=== PATIENT | female | born 1950 | race Caucasian/White ===

== ENCOUNTER 2018-10-30 08:14 | Outpatient (CLI) ==
--- NOTE | 2018-10-30 08:58 | US ---
EXAM: RENAL ULTRASOUND, BILATERAL HISTORY: Decreased renal function FINDINGS: Ultrasound renal, bilateral. Rodriguez-scale ultrasound and color Doppler imaging was performe d. The right kidney measures 10.3 x 4.1 x 4.5 centimeters. The left kidney measures 10.5 x 5.2 x 4.1 centimeters. General renal cortical volume appears normal for age. Slight increased echogenicity of the renal cor tical tissue is seen diffusely in both kidneys which can be consistent with chronic medical renal dis ease. No hydronephrosis or renal mass. No obvious renal calculi identified within limits of ultraso und. The urinary bladder was decompressed although grossly unremarkable. IMPRESSION: 1. Increased echogenicity of the renal cortical tissue which can be consistent with chronic medical renal disease. The exam was otherwise unremarkable.
== END 2018-10-30 08:15 | disposition home or self-care (01) ==
LOC: RAD 08:14
PROVIDERS: ATTEND Family Medicine
DX: N28.9 Disorder of kidney and ureter, unspecified (principal)